=== PATIENT | female | born 2000 | race Caucasian/White ===

== ENCOUNTER 2018-09-21 14:33 | Emergency (ER) | payer OTHER ==
[2018-09-21 14:47] VITALS: BP 115/74; PULSE 101; TEMP 98.6; BMI 20.7
--- NOTE | 2018-09-21 15:28 | PDOC ---
History of Present Illness - General Chief Complaint: Revisit,Wound Recheck Stated Complaint: STITCHES OPENING Time Seen by Provider: 09/21/18 14:52 History Source: Patient Exam Limitations: No Limitations - History of Present Illness Initial Comments: 09/21/18 15:23 atient came for evaluation of postop breast reduction/plastic surgery performed in the [facility] [place] surgery was relatively uncomplicated, sutures were removed on Saturday/5 days agobut noted yesterday some dehiscence of the wounds on the under aspect of breast suture line. Has some serous fluid but no purulent drainage, no fevers, is not painful. To take some Levaquin that she bought in the [place] "just in case" Severity: mild, moderate Associated Symptoms: denies: fever/chills, headaches Past History - Travel Traveled outside of the country in the last 30 days: No Close contact w/someone who was outside of country & ill: No - Past Medical History Allergies/Adverse Reactions: Allergies Allergy/AdvReac Type Severity Reaction Status Date / Time No Known Allergies Allergy Verified 09/21/18 14:47 Home Medications: Ambulatory Orders Cephalexin Monohydrate [Keflex -] 500 mg PO Q8H #21 capsule 09/21/18 COPD: No - Suicide/Smoking/Psychosocial Hx Smoking History: Never smoked Review of Systems - Review of Systems Able to Perform ROS?: Yes Is the patient limited Estonian proficient: Yes Constitutional: Yes: Symptoms Reported, See HPI, Malaise. No: Chills, Fever HEENTM: No: Symptoms Reported Respiratory: No: Symptoms reported Integumentary: Yes: Symptoms Reported, See HPI, Lesions, Lumps Neurological: No: Symptoms reported All Other Systems: Reviewed and Negative *Physical Exam - Vital Signs Last Vital Signs Temp Pulse Resp BP Pulse Ox 98.6 F 101 H 20 115/74 100 09/21/18 14:43 09/21/18 14:43 09/21/18 14:43 09/21/18 14:43 09/21/18 14:43 - Physical Exam General Appearance: Yes: Nourished, Appropriately Dressed. No: Apparent Distress HEENT: positive: SAMIR, Normal ENT Inspection, TMs Normal, Pharynx Normal Neck: positive: Supple. negative: Tender, Lymphadenopathy (R), Lymphadenopathy (L) Respiratory/Chest: positive: Lungs Clear, Normal Breath Sounds Gastrointestinal/Abdominal: positive: Soft Extremity: positive: Normal Capillary Refill, Normal Inspection, Normal Range of Motion Integumentary: positive: Pale, Other (pproximating woundsfrom breastsurgery bilaterally, midline under nipplescarring well approximatedunderneath both breasts midpoint has dehiscence approximately 1 cm. Has no purulent drainage, discharge. Has some whitish discoloration that patient is using some type of drying and abiotic powder prescribed by plastic surgeon. 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 O evidence of abscesshowever patient reported some purulent drainage at home therefore will give short course of Keflex to treat staph, encouraged patient to discontinue Levaquinthat was self prescribed *DC/Admit/Observation/Transfer Diagnosis at time of Disposition: Wound dehiscence, surgical Qualifiers: Encounter type: initial encounter Qualified Code(s): T81.31XA - Disruption of external operation (surgical) wound, not elsewhere classified, initial encounter - Discharge Dispostion Disposition: HOME Condition at time of disposition: Stable Decision to Admit order: No - Prescriptions Prescriptions: Cephalexin Monohydrate [Keflex -] 500 mg PO Q8H #21 capsule - Referrals Referrals: Shivam Zimmerman MD [Primary Care Provider] - Yariel Arthur MD [Staff Physician] - - Patient Instructions Printed Discharge Instructions: How to Care for a Surgical Wound Additional Instructions: Continue skin care as directed by plastic surgeon keep wounds clean and dry Avoid strenuous activity or heavy lifting for an additional 2 weeks or as directed by plastic surgeon Turned to emergency department for redness, swelling, fevers or pain from areas keflex one 500 mg tablet every 8 hours for one week - Post Discharge Activity Forms/Work/School Notes: Back to Work
== END 2018-09-21 15:34 | disposition home or self-care (01) ==
LOC: JERFT 14:33
DX: T81.31XA Disruption of external operation (surgical) wound, not elsewhere classified, initial encounter (principal); Y83.4 Other reconstructive surgery as the cause of abnormal reaction of the patient, or of later complication, without mention of misadventure at the time of the procedure; Y92.038 Other place in apartment as the place of occurrence of the external cause
CPT/HCPCS: 99281-25